=== PATIENT | female | born 1980 | race Caucasian/White ===

== ENCOUNTER 2024-06-06 20:31 | Emergency (ER) | payer MEDICAID | END 2024-06-06 21:33 | disposition left against medical advice (07) | LOC: ER 20:31 | DX: Z53.21 Procedure and treatment not carried out due to patient leaving prior to being seen by health care provider (principal) ==

== ENCOUNTER 2024-06-11 15:19 | Emergency (ER) | payer MEDICAID ==
[~2024-06-11] VITALS: Ht 167.6 cm; Wt 111.0 kg
[2024-06-11 15:37] VITALS: BP 123/98; PULSE 97; RESP 18; TEMP 98.3; O2SAT 99
[2024-06-11] MEDS ORDERED: CEPH500C2 MT (17:00)
[2024-06-11] MEDS ORDERED: SULF1TAB48 MT (17:00)
[2024-06-11] MEDS ORDERED: IBUP-2029 MT (17:00)
== END 2024-06-11 17:33 | disposition home or self-care (01) ==
LOC: ER 15:19
DX: L03.115 Cellulitis of right lower limb (principal); I10 Essential (primary) hypertension
CPT/HCPCS: 99283